=== PATIENT | female | born 1985 | race Two or more races ===

== ENCOUNTER 2017-11-27 04:39 | Emergency (ER) | payer OTHER ==
[~2017-11-27] VITALS: Ht 157.5 cm; Wt 87.5 kg
[2017-11-27 04:42] VITALS: Ht 157.5 cm; Wt 87.5 kg
[2017-11-27 05:21] LABS: BASOPHIL % 0.5 % (0-2)
[2017-11-27 05:22] LABS: PLATELET COUNT 413 x10^3mcL (130-400); RED CELL DISTRIBUTION WIDTH 15.1 % (11.5-14.5)
[2017-11-27 06:21] LABS: CALCIUM 8.7 mg/dL (8.5-10.1); CHLORIDE SERUM 100 mmol/L (98-107); CREATININE SERUM 0.7 mg/dL (0.6-1.0); GFR1 > 60 mL/min; GLUCOSE SERUM 118 mg/dL (74-106); POTASSIUM SERUM 4.7 mmol/L (3.5-5.1); SODIUM SERUM 132 mmol/L (136-145)
[2017-11-27 06:25] LABS: ALBUMIN 3.4 g/dL (3.4-5.0); ALKALINE PHOSPHATASE 91 U/L (46-116); ALT/SGPT 14 U/L (14-59); AST/SGOT 35 U/L (15-37); BILIRUBIN TOTAL 0.29 mg/dL (0.20-1.00); TOTAL PROTEIN, SERUM 7.4 g/dL (6.4-8.2)
[2017-11-27 08:30] VITALS: BP 115/78
== END 2017-11-27 08:30 | disposition home or self-care (01) ==
LOC: ED 04:39
PROVIDERS: Emergency Medicine
DX: N20.0 Calculus of kidney (principal)
CPT/HCPCS: J1885; J2405

== ENCOUNTER 2020-03-04 10:23 | Emergency (ER) | payer OTHER ==
[~2020-03-04] VITALS: Ht 160 cm; Wt 95.7 kg
[2020-03-04 10:31] VITALS: Ht 160 cm; Wt 95.7 kg
[2020-03-04 12:33] LABS: BASOPHIL % 0.5 % (0-2); PLATELET COUNT 377 x10^3mcL (130-400)
[2020-03-04 12:34] LABS: RED CELL DISTRIBUTION WIDTH 16.7 % (11.5-14.5)
[2020-03-04 15:00] VITALS: BP 114/68
== END 2020-03-04 15:00 | disposition home or self-care (01) ==
LOC: ED 10:23
PROVIDERS: Emergency Medicine
DX: O46.91 Antepartum hemorrhage, unspecified, first trimester (principal); Z3A.01 Less than 8 weeks gestation of pregnancy
CPT/HCPCS: Q0092

== ENCOUNTER 2020-03-15 07:24 | Emergency (ER) | payer OTHER ==
[~2020-03-15] VITALS: Ht 160 cm; Wt 96.2 kg
[2020-03-15 07:44] VITALS: Ht 160 cm; Wt 96.2 kg
[2020-03-15 09:21] LABS: BASOPHIL % 0.8 % (0-2); PLATELET COUNT 413 x10^3mcL (130-400); RED CELL DISTRIBUTION WIDTH 16.1 % (11.5-14.5)
[2020-03-15 09:26] LABS: microscopic required? YES; urine erythrocyte 2+ (NEGATIVE)
[2020-03-15 11:11] VITALS: BP 112/80
== END 2020-03-15 11:11 | disposition home or self-care (01) ==
LOC: ED 07:24
PROVIDERS: Emergency Medicine
DX: O03.9 Complete or unspecified spontaneous abortion without complication (principal)

== ENCOUNTER 2020-03-30 22:12 | Emergency (ER) | payer OTHER ==
[~2020-03-30] VITALS: Ht 170.2 cm; Wt 95.7 kg
[2020-03-30 22:27] VITALS: Ht 170.2 cm; Wt 95.7 kg
[2020-03-31 01:48] VITALS: BP 130/71
== END 2020-03-31 01:48 | disposition home or self-care (01) ==
LOC: ED 22:12
DX: G43.909 Migraine, unspecified, not intractable, without status migrainosus (principal)
CPT/HCPCS: 82962; J1885; J3030